=== PATIENT | female | born 1955 | race Caucasian/White ===

== ENCOUNTER 2016-10-23 06:31 | Emergency (ER) | payer OTHER ==
--- NOTE | ~2016-10-23 | CT4 ---
[facility] A Service of [facility] & [facility] RADIOLOGY TEXT RESULTS PATIENT: JACQUELYN DELGADO LOCATION: SED : 57 UNIT #: [id number] AGE: [address]: Ar Da Silva MD SEX: F ORDER DR: [id number] [address] [address] [id number] E MR#: [id number] Acc #: [id number] NAME: JACQUELYN DELGADO. : 1955 SEX: F STUDY DATE/TIME: 10/23/2016 6:56 UNIT: SED ROOM: STUDY DESCRIPTION: CT Abd and Pelv Wo Cont Attending Physician: Ar Da Silva M.D. Ordering Physician: Butch Valdez M.D. Primary Care Physician: Bladimir Johnson M.D. MEDICAL IMAGING REPORT This report is preliminary unless electronic signature is present. EXAM CT abdomen and pelvis without contrast HISTORY Right lower quadrant pain for 24 hours. COMPARISON: 01/17/16 Axial 3 mm images were obtained through the abdomen and pelvis without IV or oral contrast. The CT exam was performed with one or more of the following radiation dose reduction techniques: automatic exposure control, adjustment of mA and/or kV according to patient size, and iterative reconstruction. FINDINGS The lung bases are clear. The gallbladder has been removed. The liver, spleen, pancreas, and adrenal glands are normal. The patient either has peripelvic cysts or mildly prominent pelvises. The appearance is unchanged from 01/17/16. The ureter is not dilated. There is no perinephric edema. The renal parenchyma appears normal. The aorta is normal in size and there is no adenopathy. The bowel including the appendix appears normal. The bladder is normal. The uterus has been removed. There are no adnexal masses. The bones show mild degenerative change in the lumbar spine. IMPRESSION 1. The appendix is normal. 2. No cause for the right lower quadrant pain is identified. 3. Prior cholecystectomy and hysterectomy. 4. The patient either has prominent renal pelvises bilaterally or peripelvic cysts. The appearance is unchanged from 01/17/16 and there STS. [facility] A Service of [facility] & [facility] RADIOLOGY TEXT RESULTS PATIENT: JACQUELYN DELGADO LOCATION: [facility] – [place] : 57 UNIT #: [id number] AGE: [address]: Ar Da Silva MD SEX: F ORDER DR: is no evidence of obstruction. Dictated by... Dante Méndez M.D. THIS IS AN ELECTRONICALLY VERIFIED REPORT Dante Méndez M.D. at 10/23/2016 11:21 AM LAMONT/steffen TD: 10/23/2016 09:23 JOB #: [id number] MEDICAL IMAGING REPORT Page 1 of 1
[~2016-10-23 06:31] MED LIST: COZAAR; DIAZEPAM; FARXIGA5 MG; FLONASE 0.05% N16 G1; HYDROCODON-ACE1 EAC7; INVOKANA100 MG; JANUVIA100 MG; NEURONTIN; NORFLEX100 M1 PO; PRAMIPEXOLE E0.75 MG; PRAVACHOL20 MG; STRIVERDI RESPIM4 GM; ZANTAC
[2016-10-23 06:33] LABS: URINE SOURCE CLEAN CATCH
[2016-10-23 06:37] LABS: URINE APPEARANCE CLEAR; URINE BILIRUBIN NEG (NEG); URINE BLOOD NEG (NEG); URINE COLOR YELLOW; URINE GLUCOSE 300 MG/DL (NORM); URINE KETONE NEG (NEG); URINE LEUKOCYTE ESTERASE NEG (NEG); URINE NITRATE NEG (NEG); URINE PROTEIN NEG (NEG); URINE UROBILINOGEN 0.2 MG/DL (NORM)
[2016-10-23 06:38] LABS: BASOPHIL# 0.1 X10e3 (0-0.3); BASOPHIL% 1.1 % (0-2.5); EOSINOPHIL# 0.2 X10e3 (0-0.7); EOSINOPHIL% 2.8 % (0.0-7.0); HEMATOCRIT 46.1 % (35.0-45.0); HEMOGLOBIN 15.5 gm/dL (12.0-16.0); LYMPHOCYTE# 3.8 X10e3 (1.0-3.5); LYMPHOCYTE% 46.5 % (17.0-45.0); MEAN CORPUSCULAR HGB CONC 33.7 g/dL (30-36); MEAN PLATELET VOLUME 8.3 FL (6.5-11.5); MONOCYTE# 0.7 X10e3 (0-1.0); MONOCYTE% 8.7 % (3.0-12.0); NEUTROPHIL# 3.4 X10e3 (1.5-7.1); NEUTROPHIL% 40.9 % (40-75); PLATELET COUNT 253 X10e3 (140-420); RED BLOOD COUNT 5.35 X10e (3.90-5.30); RED CELL DISTRIBUTION WIDTH 14.2 % (11.0-15.5); WHITE BLOOD COUNT 8.2 X10e3 (4.0-10.5)
[2016-10-23 06:46] LABS: MICRO INDICATED? NO
[2016-10-23 06:58] LABS: CALCIUM SERUM 9.2 mg/dL (8.4-10.2); GLOM FILT RATE Estimated 61.2 mL/min (>60); POTASSIUM 3.5 mmol/L (3.5-5.1)
[2016-10-23 07:24] LABS: BILIRUBIN, DIRECT 0.2 mg/dL (0.0-0.2); BILIRUBIN,INDIRECT 0.2 mg/dL (0.0-0.9); BILIRUBIN,TOTAL 0.4 mg/dL (0.2-2.0); PROTEIN TOTAL SERUM 7.7 g/dL (6.0-8.3)
[2016-10-23 07:33] LABS: DIFF IND NO
== END 2016-10-23 08:48 | disposition home or self-care (01) ==
LOC: SED 06:31
PROVIDERS: Emergency Medicine
DX: S39.011A Strain of muscle, fascia and tendon of abdomen, initial encounter (principal); E11.9 Type 2 diabetes mellitus without complications; I10 Essential (primary) hypertension; E78.5 Hyperlipidemia, unspecified; Z90.49 Acquired absence of other specified parts of digestive tract; Z90.710 Acquired absence of both cervix and uterus; X58.XXXA Exposure to other specified factors, initial encounter
CPT/HCPCS: 36415; 74176; 80048; 80076; 81003; 83690; 85025; 96374; 96375; 99284; J2270; J2405